=== PATIENT | female | born 1945 | race Hispanic/Latino ===

== ENCOUNTER 2024-01-26 23:10 | Inpatient (IN) | payer SELFPAY ==
[2024-01-26 23:53] LABS: #Basophils 0.03 10x3/uL (0.0-0.2); %Basophils 0.2 % (0.0-1.0); %Eosinophils 0.3 % (0.0-10.0); %Lymphocytes 40.3 % (21.0-51.0); %Monocytes 10.6 % (0.0-10.0); %Neutrophils 46.8 % (42.0-75.0); Hematocrit 42.7 % (36.0-47.0); Hemoglobin 14.1 g/dL (12.0-16.0); Mean Corpuscular Hemoglobin 28.8 pg (27.0-31.0); Mean Corpuscular Volume 87.1 fL (78.0-98.0); Mean Platelet Volume 9.6 fL (7.4-10.4); Platelet Count 264 10x3/uL (130-400); RBC Distribution Width 13.2 % (11.5-14.5)
[2024-01-26 23:54] LABS: Bacteria/HPF None Seen HPF (None Seen); Bilirubin Negative (Negative); Blood, Urine Negative (Negative); CAUTI Indications for Culture Pelvic or flank pain; Clarity Clear (Clear); Glucose, Urine (Dipstick) Normal (Negative); Ketone, Urine Negative (Negative); Leukocyte Negative Leu/uL (Negative); Nitrite Negative (Negative); Protein, Urine (Dipstick) Negative (Neg-Trace); RBC/HPF 0-3 HPF (0-3); Specific Gravity, Urine 1.016 (1.002-1.036); Squamous Epithelial 0-3 HPF (0-3); Urobilinogen Normal mg/dL (Less than 2); WBC/HPF 0-3 HPF (0-3)
[2024-01-27 00:06] LABS: Urine Culture Reflex No No
[2024-01-27 00:10] LABS: ALT (SGPT) 39 U/L (8-55); AST (SGOT) 25 U/L (5-34); Albumin 3.4 g/dL (3.4-4.8); Alkaline Phosphatase 100 U/L (40-110); Anion Gap 15 mmol/L (10-20); BUN (Urea Nitrogen) 24 mg/dL (9.8-20.1); Bilirubin, Total 0.3 mg/dL (0.2-1.2); Calc. Creatinine Clearance 0 mL/min (70-130); Calcium 9.1 mg/dL (7.8-10.44); Carbon Dioxide 20 mmol/L (23-31); Chloride 103 mmol/L (98-107); Estimated GFR 88; Globulin 3.3 g/dL (2.4-3.5); Glucose 136 mg/dL (83-110); Lipase 235 U/L (8-78); Potassium 3.8 mmol/L (3.5-5.1); Protein, Total 6.7 g/dL (5.8-8.1); Sodium 134 mmol/L (136-145)
[2024-01-27 00:14] LABS: Troponin I Less than 0.010 ng/mL (< 0.028)
[2024-01-27] MEDS ORDERED: Morphine 4 MG/ML VIAL ONE ×2 (00:16→03:46)
[2024-01-27] MEDS ORDERED: Ondansetron PF 4 MG/2 ML Vial ONE (00:16)
[2024-01-27] MEDS ORDERED: Acetaminophen 650 MG Suppository PR PRN (05:06)
[2024-01-27] MEDS ORDERED: Ondansetron ODT 4 MG TAB PO PRN (05:06)
[2024-01-27] MEDS: Acetaminophen 325 MG TAB PO SCH (06:31)
[2024-01-27] MEDS: Lactated Ringer's 500 ML IV SCH (06:37)
[2024-01-27] MEDS: Famotidine/PF 20 mg/2ml Vial SLOW IVP SCH (08:44)
[2024-01-27] MEDS: Famotidine 20 MG TAB PO SCH (09:03)
[2024-01-27 09:40] VITALS: BMI 27.8
[2024-01-27] MEDS ORDERED: Iopamidol-370 76% 500 ML MDV (1 ML CHARGE) ONE (11:40)
[2024-01-27] MEDS ORDERED: Lactated Ringer's 1,000 ML IV SCH (11:59)
[2024-01-27] MEDS: FLU (Fluad Triv) TS24-25 (65UP)/MF59C/PF 45 MCG/0.5 ML Syringe IM ONE (13:09)
[2024-01-27] MEDS: Sodium Chloride 0.9% 1,000 ML IV SCH (13:58)
[2024-01-27] MEDS: Ondansetron PF 4 MG/2 ML Vial IVP PRN (14:00)
[2024-01-28 06:28] LABS: #Basophils Less than 0.03 10x3/uL (0.0-0.2); %Basophils 0.1 % (0.0-1.0); %Eosinophils 0.5 % (0.0-10.0); %Lymphocytes 27.6 % (21.0-51.0); %Neutrophils 59.8 % (42.0-75.0); Hemoglobin 12.5 g/dL (12.0-16.0); Mean Corpuscular HGB CONC 33.8 g/dL (32.0-36.0); Mean Corpuscular Hemoglobin 28.7 pg (27.0-31.0); Mean Corpuscular Volume 85.1 fL (78.0-98.0); Mean Platelet Volume 9.8 fL (7.4-10.4); Platelet Count 214 10x3/uL (130-400); RBC Distribution Width 13.2 % (11.5-14.5); Red Blood Cell (RBC) Count 4.35 mill/uL (4.20-5.40)
[2024-01-28] MEDS ORDERED: Morphine 2 MG/ML VIAL SLOW IVP PRN (08:59)
[2024-01-28 10:15] LABS: #Basophils Less than 0.03 10x3/uL (0.0-0.2); #Eosinophils Less than 0.03 10x3/uL (0.0-0.7); %Basophils 0.1 % (0.0-1.0); %Eosinophils 0.2 % (0.0-10.0); %Lymphocytes 20.4 % (21.0-51.0); %Monocytes 8.4 % (0.0-10.0); %Neutrophils 70.3 % (42.0-75.0); Hematocrit 43.8 % (36.0-47.0); Hemoglobin 14.3 g/dL (12.0-16.0); Mean Corpuscular HGB CONC 32.6 g/dL (32.0-36.0); Mean Corpuscular Hemoglobin 28.5 pg (27.0-31.0); Mean Corpuscular Volume 87.4 fL (78.0-98.0); Mean Platelet Volume 9.5 fL (7.4-10.4); Platelet Count 227 10x3/uL (130-400); RBC Distribution Width 13.3 % (11.5-14.5); Red Blood Cell (RBC) Count 5.01 mill/uL (4.20-5.40)
[2024-01-28 10:43] LABS: ALT (SGPT) 27 U/L (8-55); AST (SGOT) 22 U/L (5-34); Albumin 2.9 g/dL (3.4-4.8); Alkaline Phosphatase 70 U/L (40-110); Anion Gap 16 mmol/L (10-20); BUN (Urea Nitrogen) 16 mg/dL (9.8-20.1); Bilirubin, Total 0.5 mg/dL (0.2-1.2); Calc. Creatinine Clearance 64 mL/min (70-130); Calcium 8.4 mg/dL (7.8-10.44); Carbon Dioxide 17 mmol/L (23-31); Chloride 107 mmol/L (98-107); Estimated GFR 91; Globulin 3.2 g/dL (2.4-3.5); Glucose 56 mg/dL (83-110); Lipase 78 U/L (8-78); Potassium 3.7 mmol/L (3.5-5.1); Protein, Total 6.1 g/dL (5.8-8.1); Sodium 136 mmol/L (136-145)
[2024-01-28] MEDS: Lorazepam 2 MG/ML VIAL SLOW IVP SCH (11:12)
[2024-01-28] MEDS: Lorazepam 2 MG/ML VIAL ONE (11:18)
[2024-01-29 05:59] LABS: #Basophils Less than 0.03 10x3/uL (0.0-0.2); %Basophils 0.1 % (0.0-1.0); %Eosinophils 1.2 % (0.0-10.0); %Lymphocytes 35.5 % (21.0-51.0); %Monocytes 11.9 % (0.0-10.0); %Neutrophils 50.7 % (42.0-75.0); Hematocrit 39.2 % (36.0-47.0); Mean Corpuscular HGB CONC 33.2 g/dL (32.0-36.0); Mean Corpuscular Hemoglobin 28.7 pg (27.0-31.0); Mean Corpuscular Volume 86.5 fL (78.0-98.0); Mean Platelet Volume 9.8 fL (7.4-10.4); Platelet Count 239 10x3/uL (130-400); RBC Distribution Width 13.3 % (11.5-14.5); Red Blood Cell (RBC) Count 4.53 mill/uL (4.20-5.40)
[2024-01-29 06:22] LABS: ALT (SGPT) 22 U/L (8-55); AST (SGOT) 19 U/L (5-34); Albumin 2.7 g/dL (3.4-4.8); Alkaline Phosphatase 66 U/L (40-110); Anion Gap 11 mmol/L (10-20); BUN (Urea Nitrogen) 14 mg/dL (9.8-20.1); Calc. Creatinine Clearance 57 mL/min (70-130); Carbon Dioxide 22 mmol/L (23-31); Chloride 107 mmol/L (98-107); Estimated GFR 88; Glucose 103 mg/dL (83-110); Lipase 44 U/L (8-78); Potassium 3.9 mmol/L (3.5-5.1); Protein, Total 5.7 g/dL (5.8-8.1); Sodium 136 mmol/L (136-145)
[2024-01-29 06:34] LABS: Bilirubin, Total 0.5 mg/dL (0.2-1.2); Calcium 8.5 mg/dL (7.8-10.44); Magnesium 2.2 mg/dL (1.6-2.6)
[2024-01-29 08:11] VITALS: BP 157/82; TEMP 97.3
== END 2024-01-29 13:43 | disposition home or self-care (01) | DRG 440 ==
LOC: ERS 23:10 → T4-A 01-27 06:23
PROVIDERS: ADMIT Student in an Organized Health Care Education/Training Program; ATTEND Internal Medicine
DX: K85.90 Acute pancreatitis without necrosis or infection, unspecified (principal); Z88.0 Allergy status to penicillin; Z79.899 Other long term (current) drug therapy; E78.5 Hyperlipidemia, unspecified; Z90.710 Acquired absence of both cervix and uterus
CPT/HCPCS: 36415; 74177; 74181; 74183; 76376; 80053; 81001; 83690; 83735; 84484; 85025; 93005; 96361; 96374; 96375; 96376; J2060; J2272; J2405; J3490; J7030; J7120; Q9967